=== PATIENT | female | born 1950 | race Caucasian/White ===

== ENCOUNTER → 2017-03-07 | Day surgery (SDC) | payer OTHER ==
[~2017-03-07] VITALS: Ht 154.9 cm; Wt 61.2 kg
[~2017-03-07] MED LIST: ALEVE220 MG PO; MOTRIN800 MG PO
--- NOTE | ~2017-03-07 | O ---
[place], [place] OPERATIVE NOTE NAME: AKI BLANCHARD UNIT #: [id number] ROOM: DOCTOR: SARAH MCCOY MD BIRTHDATE: [birth year] DOS: 03/07/2017 PREOPERATIVE DIAGNOSIS: Cataract, left eye. POSTOPERATIVE DIAGNOSIS: Cataract, left eye. OPERATION: Extracapsular cataract extraction by phacoemulsification with posterior chamber intraocular lens implantation, left eye. ANESTHESIA: Monitored standby. OPERATIVE FINDINGS AND PROCEDURE: 2% Xylocaine topical anesthetic gel was applied to the eye in the preop area. The patient was taken to the operating room and prepped and draped in the standard fashion for sterile intraocular surgery. A time out procedure was performed verifying correct patient, correct site and corrects lens with Lor Mccoy M.D. The operating microscope was swung into position and the lid speculum was inserted. Using a Mary paracentesis blade, a paracentesis was made through clear cornea. Viscoelastic was used to fill the anterior chamber. Using a metal keratome a 2.4 mm self-sealing clear corneal cataract incision was made temporally at the limbus. Using a pre-bent 25 gauge cystotome needle, a standard continuous curvilinear capsulorrhexis was performed. The anterior capsule was removed with forceps. The lens nucleus was hydrodissected and phacoemulsified in the posterior chamber. Cortical material was removed with the irrigation aspiration hand piece and the posterior capsule was then polished with a curet under irrigation. The posterior chamber and capsular bag were filled with viscoelastic. A posterior chamber intraocular lens manufactured by: [employer], Model #[id number], and 17.5 diopters in strength were then inserted into the posterior chamber and within the capsular bag using the lens cartridge and injector system. Viscoelastic was removed using the irrigation aspiration handpiece. The anterior chamber was filled with balanced salt solution through the paracentesis. Both the paracentesis site and cataract incisions were hydrated with BSS and verified to be water-tight and self-sealing. Cefuroxime 1 mg/0.1 mL was injected into the anterior chamber through the paracentesis site. The incision checked to be water-tight using a Weck-Izzy sponge. The integrity of the cataract wound and ocular tension were checked. Lid speculum and drapes were removed. The patient was transferred from the operating room to the recovery room in satisfactory condition. [place], [place] OPERATIVE NOTE NAME: AKI BLANCHARD UNIT #: [id number] ROOM: DOCTOR: SARAH MCCOY MD BIRTHDATE: [birth year] SARAH MCCOY MD CM:OPRECORD:OPERATIVE NOTE 1306 [id number] SARAH MCCOY MD 03/07/17 1525 interface
[2017-03-07 11:59] VITALS: BP 119/44
[2017-03-07 13:03] VITALS: BP 109/36
[2017-03-07 13:18] VITALS: BP 109/36
[2017-03-07 13:32] VITALS: BP 107/41
== END | disposition home or self-care (01) ==
LOC: SDC 03-01 14:00
DX: H26.9 Unspecified cataract (principal); Z87.891 Personal history of nicotine dependence; Z90.49 Acquired absence of other specified parts of digestive tract; M19.90 Unspecified osteoarthritis, unspecified site; Z88.8 Allergy status to other drugs, medicaments and biological substances

== ENCOUNTER → 2017-04-04 | Day surgery (SDC) | payer OTHER ==
[~2017-04-04] VITALS: Ht 154.9 cm; Wt 61.2 kg
--- NOTE | ~2017-04-04 | O ---
[place], [place] OPERATIVE NOTE NAME: AKI BLANCHARD UNIT #: [id number] ROOM: DOCTOR: SARAH MCCOY MD BIRTHDATE: [birth year] DOS: 04/04/2017 PREOPERATIVE DIAGNOSIS: Cataract, right eye. POSTOPERATIVE DIAGNOSIS: Cataract, right eye. OPERATION: Extracapsular cataract extraction by phacoemulsification with posterior chamber intraocular lens implantation, right eye. ANESTHESIA: Monitored standby. OPERATIVE FINDINGS AND PROCEDURE: 2% Xylocaine topical anesthetic gel was applied to the eye in the preop area. The patient was taken to the operating room and prepped and draped in the standard fashion for sterile intraocular surgery. A time out procedure was performed verifying correct patient, correct site and corrects lens with Lor Mccoy MD. The operating microscope was swung into position and the lid speculum was inserted. Using a Mary paracentesis blade, a paracentesis was made through clear cornea. Viscoelastic was used to fill the anterior chamber. Using a metal keratome a 2.4 mm self-sealing clear corneal cataract incision was made temporally at the limbus. Using a pre-bent 25 gauge cystotome needle, a standard continuous curvilinear capsulorrhexis was performed. The anterior capsule was removed with forceps. The lens nucleus was hydrodissected and phacoemulsified in the posterior chamber. Cortical material was removed with the irrigation aspiration hand piece and the posterior capsule was then polished with a curet under irrigation. The posterior chamber and capsular bag were filled with viscoelastic. A posterior chamber intraocular lens manufactured by: [employer], Model #[id number], and 17.5 diopters in strength were then inserted into the posterior chamber and within the capsular bag using the lens cartridge and injector system. Viscoelastic was removed using the irrigation aspiration handpiece. The anterior chamber was filled with balanced salt solution through the paracentesis. Both the paracentesis site and cataract incisions were hydrated with BSS and verified to be water-tight and self-sealing. Cefuroxime 1 mg/0.1 mL was injected into the anterior chamber through the paracentesis site. The incision checked to be water-tight using a Weck-Izzy sponge. The integrity of the cataract wound and ocular tension were checked. Lid speculum and drapes were removed. The patient was transferred from the operating room to the recovery room in satisfactory condition. [place], [place] OPERATIVE NOTE NAME: AKI BLANCHARD UNIT #: [id number] ROOM: DOCTOR: SARAH MCCOY MD BIRTHDATE: [birth year] SARAH MCCOY MD CM:OPRECORD:OPERATIVE NOTE 1302 1331 SARAH MCCOY MD 04/04/17 1330 interface
[2017-04-04 12:28] VITALS: BP 98/51
[2017-04-04 13:00] VITALS: BP 126/54
[2017-04-04 13:15] VITALS: BP 118/49
[2017-04-04 13:30] VITALS: BP 126/53
== END | disposition home or self-care (01) ==
LOC: SDC 03-12 11:00
DX: H26.9 Unspecified cataract (principal); Z90.710 Acquired absence of both cervix and uterus; Z98.890 Other specified postprocedural states; Z87.891 Personal history of nicotine dependence; Z90.49 Acquired absence of other specified parts of digestive tract

== ENCOUNTER → 2017-09-27 | Outpatient (CLI) | payer OTHER, MEDICARE | END | disposition home or self-care (01) | LOC: MAMMO 07:18 | DX: Z12.31 Encounter for screening mammogram for malignant neoplasm of breast (principal); Z13.9 Encounter for screening, unspecified ==

== ENCOUNTER → 2018-06-12 | Outpatient (CLI) | payer MEDICARE | LOC: RAD 13:06 | DX: Z13.820 Encounter for screening for osteoporosis (principal); Z78.0 Asymptomatic menopausal state; Z90.710 Acquired absence of both cervix and uterus ==

== ENCOUNTER 2021-06-19 10:02 | Emergency (ER) | payer MEDICARE ==
[~2021-06-19] VITALS: Wt 59.0 kg
== END 2021-06-19 12:04 | disposition home or self-care (01) ==
LOC: ED 10:02
DX: B34.9 Viral infection, unspecified (principal)